=== PATIENT | male | born 1995 ===

== ENCOUNTER 2023-11-19 15:55 | Emergency (ER) | payer BC ==
[~2023-11-19] VITALS: Ht 172.7 cm; Wt 86.2 kg
== END 2023-11-19 17:41 | disposition home or self-care (01) ==
LOC: ED 15:55
DX: S49.92XA Unspecified injury of left shoulder and upper arm, initial encounter (principal); X58.XXXA Exposure to other specified factors, initial encounter; Y93.66 Activity, soccer; Y92.39 Other specified sports and athletic area as the place of occurrence of the external cause; Y99.8 Other external cause status